=== PATIENT | female | born 1965 | race Caucasian/White ===

== ENCOUNTER 2018-04-16 18:15 | Emergency (ER) | payer OTHER ==
[~2018-04-16] VITALS: Ht 154.9 cm; Wt 58.0 kg
--- NOTE | 2018-04-16 18:15 | NUR ---
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 cardiac, NIBP & SpO2 monitors in place.
[2018-04-16] MEDS ORDERED: LISI5TAB7 PO (18:24)
--- NOTE | 2018-04-16 18:30 | NUR ---
ERP at BS for consult
[2018-04-16] MEDS ORDERED: SODIUM CHLORIDE 0.9% 1,000 ML IV ONE (18:42)
--- NOTE | 2018-04-16 18:52 | NUR ---
report given to Aidee
[2018-04-16] MEDS ORDERED: MORPHINE SULFATE 4 MG/ML, 1ML ONE (18:55)
[2018-04-16] MEDS ORDERED: ONDANSETRON 2MG/ML, 2ML ONE (18:55)
[2018-04-16] MEDS ORDERED: MORPHINE SULFATE 4 MG/ML, 1ML IVPush PRN (19:00)
[2018-04-16] MEDS ORDERED: SODIUM CHLORIDE FLUSH 10ML SYR IVF ONE (19:00)
[2018-04-16] MEDS ORDERED: ONDANSETRON 2MG/ML, 2ML IVPush ONE (19:00)
--- NOTE | 2018-04-16 19:00 | NUR ---
REPORT FROM LONI LE. PT BEING MEDICATED BY SOLE RN. PT HAS NO OTHER NEEDS AT THIS TIME. LAB AT BEDSIDE. CALL LIGHT IN REACH
--- NOTE | 2018-04-16 19:10 | NUR ---
IV, MEDS - US DELAY
[2018-04-16 19:13] LABS: BASOPHILS # (AUTO) 0.02 x10^3/uL (0-0.1); BASOPHILS % (AUTO) 0 % (0-1); EOSINOPHILS # (AUTO) 0.09 x10^3/uL (0-0.4); EOSINOPHILS % (AUTO) 1 % (1-7); LYMPHOCYTES # (AUTO) 1.66 x10^3/uL (1-3.4); LYMPHOCYTES % (AUTO) 21 % (22-44); MD NO; MEAN CORPUSCULAR HEMOGLOBIN 29.8 pg (27.0-34.8); MEAN CORPUSCULAR HGB CONC 33.6 g/dL (32.4-35.8); MEAN CORPUSCULAR VOLUME 88.8 fL (80-100); MEAN PLATELET VOLUME 8.2 fL (7.4-10.4); MONOCYTES # (AUTO) 0.35 x10^3/uL (0.2-0.8); MONOCYTES % (AUTO) 5 % (2-9); NEUTROPHILS # (AUTO) 5.84 x10^3/uL (1.8-6.8); NEUTROPHILS % (AUTO) 73 % (42-75); PLATELET COUNT 273 x10^3/uL (130-400); RED BLOOD COUNT 4.63 x10^6/uL (3.82-5.3); RED CELL DISTRIBUTION WIDTH 13.6 % (9.6-15.2)
--- NOTE | 2018-04-16 19:16 | NUR ---
PIV PLACED. US AT [facility]
[2018-04-16 19:19] LABS: INTERNATIONAL NORMALIZED RATIO 0.99 (0.93-1.1); PROTHROMBIN TIME 10.5 Seconds (9.6-11.5)
[2018-04-16 19:23] LABS: ALANINE AMINOTRANSFERASE 39 U/L (12-78); ALBUMIN 3.5 g/dL (3.4-5.0); ANION GAP 9 mmol/L (5-15); CHLORIDE 108 mmol/L (98-107); CREATININE 0.77 mg/dL (0.55-1.02)
[2018-04-16 19:24] LABS: ALKALINE PHOSPHATASE 63 U/L (45-117); BILIRUBIN,TOTAL 1.1 mg/dL (0.2-1.0)
[2018-04-16] MEDS ORDERED: FAMOTIDINE 20 MG/2 ML IVPush ONE (20:00)
[2018-04-16] MEDS ORDERED: MAALOX/HYOSCYAMINE/LIDOCAINE 45 ML BTL PO ONE (20:00)
[2018-04-16] MEDS ORDERED: MAALOX/HYOSCYAMINE/LIDOCAINE 45 ML BTL ONE (20:11)
[2018-04-16] MEDS ORDERED: FAMOTIDINE 20 MG/2 ML ONE (20:12)
--- NOTE | 2018-04-16 20:22 | NUR ---
PT MEDICATED WITH GI COCKTAIL AND PEPCID. WILL REASSESS IN 15 MIN
[2018-04-16 21:02] VITALS: BP 124/65
--- NOTE | 2018-04-16 21:04 | NUR ---
Patient given discharge instructions and they have confirmed that they understand the instructions. Patient taken out by wheelchair.
== END 2018-04-16 21:04 | disposition home or self-care (01) ==
LOC: ED 19:53
DX: K29.00 Acute gastritis without bleeding (principal); R55 Syncope and collapse; I10 Essential (primary) hypertension
CPT/HCPCS: 36415; 76700; 80053; 83690; 85025; 85610; 93005; 96361; 96374; 96375; 99284; J2405; J3490; J7030

== ENCOUNTER → 2019-12-30 | Outpatient (CLI) | payer OTHER ==
[~2019-12-30] MED LIST: LISI5TAB7 PO
== END | disposition home or self-care (01) ==
LOC: RAD 16:23
PROVIDERS: ATTEND Family Medicine
DX: K11.21 Acute sialoadenitis (principal)
CPT/HCPCS: 76536